=== PATIENT | male | born 2000 | race Native Hawaiian/Other Pacific Islander ===

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

== ENCOUNTER 2022-04-23 15:43 | Outpatient (CLI) | payer OTHER | END 2022-04-23 21:22 | disposition home or self-care (01) | LOC: LABW 15:43 | PROVIDERS: ATTEND Pediatrics | DX: R68.89 Other general symptoms and signs (principal) | CPT/HCPCS: 87502 ==